=== PATIENT | male | born 1980 | race African-American/Black ===

== ENCOUNTER 2019-05-28 13:57 | Emergency (ER) | payer SELFPAY ==
--- NOTE | 2019-05-28 14:42 | PDOC ---
History of Present Illness - General Chief Complaint: Ear Problem Stated Complaint: EAR INFECTION Time Seen by Provider: 05/28/19 14:21 - History of Present Illness Initial Comments: 05/28/19 14:21 CHIEF COMPLAINT: R ear pain HISTORY OF PRESENT ILLNESS: 38 yo M presents to [facility] with pain to R ear x 3 days. Patient reports using "the antibiotics drops" that he purchased OTC without relief. Denies any hearing loss, fever, chills, N/V/D or any other symptoms. No recent travel or sick contacts. PAST MEDICAL HISTORY: Denies past medical history FAMILY HISTORY: Denies SOCIAL HISTORY: Denies tobacco, alcohol, illicit drug use. SURGICAL HISTORY: Denies ALLERGIES: No known drug allergies REVIEW OF SYSTEMS General/Constitutional: Denies fever or chills. Denies weakness, weight change. HEENT: R ear pain x 3 days. Denies change in vision. Denies sore throat. Cardiovascular: Denies chest pain or shortness of breath. Respiratory: Denies cough, wheezing, or hemoptysis. Gastrointestinal: Denies nausea, vomiting, diarrhea or constipation. Denies rectal bleeding. Genitourinary: Denies dysuria, frequency, or change in urination. Musculoskeletal: Denies joint or muscle swelling or pain. Denies neck or back pain. Skin and breasts: Denies rash or easy bruising. Neurologic: Denies headache, vertigo, loss of consciousness, or loss of sensation. Psychiatric: Denies depression or anxiety. PHYSICAL EXAM General Appearance: Well-appearing, appropriately dressed. No apparent distress , no intoxication. HEENT: Erythema to R auditory canal, no dullness erythema, or bulging to TM. EOMI, PERRLA, normal ENT inspection, normal voice, TMs normal, pharynx normal. No conjunctival pallor. No photophobia, scleral icterus. Neck: Supple. Trachea midline. No tenderness, rigidity, carotid bruit, stridor , lymphadenopathy, or thyromegaly. Respiratory/Chest: Lungs CTAB. No shortness of breath, chest tenderness, respiratory distress, accessory muscle use. No crackles, rales, rhonchi, stridor , wheezing, dullness Cardiovascular: RRR. S1, S2. No JVD, murmur, bradycardia, tachycardia. Vascular Pulses: Dorsalis-Pedis (R): 2+, Dorsalis-Pedis (L): 2+ Gastrointestinal/Abdominal: Normal bowel sounds. Abdomen soft, non-distended. No tenderness or rebound tenderness. No organomegaly, pulsatile mass, guarding , hernia, hepatomegaly, splenomegaly. Lymphatic: No adenopathy, tenderness. Musculoskeletal/Extremities: Normal inspection. FROM of all extremities, normal capillary refill. Pelvis Stable. No CVA tenderness. No tenderness to extremities, pedal edema, swelling, erythema or deformity. Integumentary: Appropriate color, dry, warm. No cyanosis, erythema, jaundice or rash Neurologic: cloth grader II-XII intact. Fully oriented, alert. Appropriate mood/affect. Motor strength 5/5. No appreciable EOM palsy, facial droop or sensory deficit. Past History - Past Medical History Allergies/Adverse Reactions: Allergies Allergy/AdvReac Type Severity Reaction Status Date / Time No Known Allergies Allergy Verified 05/28/19 14:08 Home Medications: Ambulatory Orders Neomycin/Polymyxin B Sulf/Hc [Cuyppcar-Odczditga-Ye Ear Susp] 4 drop AD TID #1 bottle 05/28/19 - Psycho Social/Smoking Cessation Hx Smoking History: Never smoked *Physical Exam - Vital Signs Last Vital Signs Temp Pulse Resp BP Pulse Ox 98.3 F 85 20 129/66 99 05/28/19 14:08 05/28/19 14:08 05/28/19 14:08 05/28/19 14:08 05/28/19 14:08 Medical Decision Making - Medical Decision Making 05/28/19 14:42 38 yo M presents to [facility] with pain to R ear x 3 days. Clinical presentation consistent with otitis externa. -neomycin drops Discharge - Discharge Information Problems reviewed: Yes Clinical Impression/Diagnosis: Otitis externa Qualifiers: Otitis externa type: unspecified type Chronicity: acute Laterality: right Qualified Code(s): H60.501 - Unspecified acute noninfective otitis externa, right ear Condition: Stable Disposition: HOME - Admission No - Additional Discharge Information Prescriptions: Neomycin/Polymyxin B Sulf/Hc [Hoeeorqj-Adijufncq-Gl Ear Susp] 4 drop AD TID #1 bottle - Follow up/Referral - Patient Discharge Instructions Patient Printed Discharge Instructions: DI for Otitis Externa - Post Discharge Activity
[2019-05-28 14:58] VITALS: BP 129/66; PULSE 85; TEMP 98.3; BMI 34.0
== END 2019-05-28 15:00 | disposition home or self-care (01) ==
LOC: JERFT 13:57 → JER 13:57 → JERFT 15:00
DX: H60.501 Unspecified acute noninfective otitis externa, right ear (principal)
CPT/HCPCS: 99281-25